=== PATIENT | male | born 1995 | race Hispanic/Latino ===

== ENCOUNTER 2021-12-06 19:34 | Emergency (ER) | payer SELFPAY ==
[2021-12-06 20:21] VITALS: BP 137/81
[2021-12-06] MEDS ORDERED: GENTAMICIN SULF5 ML OS (20:36)
[2021-12-06 20:45] VITALS: BP 121/76
[2021-12-06 21:00] VITALS: BP 113/70
== END 2021-12-06 21:10 | disposition home or self-care (01) | DRG 125 ==
LOC: ED 19:34
DX: S05.02XA Injury of conjunctiva and corneal abrasion without foreign body, left eye, initial encounter (principal); X58.XXXA Exposure to other specified factors, initial encounter

== ENCOUNTER 2021-12-11 15:37 | Emergency (ER) | payer SELFPAY ==
[~2021-12-11] VITALS: Ht 172.7 cm; Wt 94.5 kg
[~2021-12-11 15:37] MED LIST: GENTAMICIN SULF5 ML OS
[2021-12-11 15:48] VITALS: BP 141/80
== END 2021-12-11 17:26 | disposition home or self-care (01) | DRG 115 ==
LOC: ED 15:37
PROC: 08C9XZZ Extirpation of Matter from Left Cornea, External Approach (ICD-10-PCS; principal; 2021-12-11)
DX: T15.02XA Foreign body in cornea, left eye, initial encounter (principal); X58.XXXA Exposure to other specified factors, initial encounter